=== PATIENT | female | born 1995 | race Caucasian/White ===

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

== ENCOUNTER 2017-09-22 18:40 | Emergency (ER) | payer MEDICAID ==
[~2017-09-22] VITALS: Ht 157.5 cm; Wt 63.5 kg
[2017-09-22] MEDS ORDERED: PRENATAL 19 TA1 EACH PO (19:00)
== END 2017-09-22 20:00 | disposition home or self-care (01) ==
LOC: ED 18:40
DX: J06.9 Acute upper respiratory infection, unspecified (principal)
CPT/HCPCS: 87880; 99283

== ENCOUNTER 2018-04-28 17:59 | Emergency (ER) | payer OTHER ==
[~2018-04-28] VITALS: Ht 157.5 cm; Wt 68.0 kg
[~2018-04-28 17:59] MED LIST changes: +PRENATAL 19 TA1 EACH PO
[2018-04-28] MEDS ORDERED: ZOLOFT25 MG PO (18:10)
[2018-04-28] MEDS ORDERED: DOXYCYCLINE HY100 MG PO (19:07)
[2018-04-28] MEDS ORDERED: VENTOLIN HFA18 GM INH (19:07)
[2018-04-28] MEDS ORDERED: PREDNISONE20 MG PO (19:07)
== END 2018-04-28 19:19 | disposition home or self-care (01) ==
LOC: ED 17:59
DX: J45.909 Unspecified asthma, uncomplicated (principal); Z79.899 Other long term (current) drug therapy
CPT/HCPCS: 87502; 99283; J7512

== ENCOUNTER 2018-07-23 17:34 | Emergency (ER) | payer OTHER ==
[~2018-07-23] VITALS: Ht 157.5 cm; Wt 70.3 kg
--- OUTSIDE RECORDS SUMMARY | ~2018-07-23 | XMS | Clinical Summary ---
Demographics + + + | Address | [address] | | | [place] [address] | + + + | Home Phone | | + + + | Preferred Language | Unknown | + + + | Marital Status | Unknown | + + + | Anabaptism Affiliation | Unknown | + + + | Race | Unknown | + + + | Ethnic Group | Unknown | + + + Author + + + | Author | [facility] | + + + | Organization | [facility] | + + + | Address | Unknown | + + + | Phone | Unavailable | + + + Support + + +---------+ + | Name | Relationship | Address | Phone | + + +---------+ + | Message,Detailed | ECON | Unknown | | + + +---------+ + | Sid Marrufo | ECON | Unknown | | + + +---------+ + | Edith Queen ECON | Unknown | | + + +---------+ + Care Team Providers + +------+ + | Care Information Technology Associate Name | Role | Phone | + +------+ + | Tatiana Vigil | PP | | + +------+ + Allergies No Known Allergies Current Medications + + +-------+---------+------+------+-------+ | Prescription | Sig. | Disp. | Refills | Star | End | Statu | | | | | | t | Date | s | | | | | | Date | | | + + +-------+---------+------+------+-------+ | | Inject into the | | | | | Activ | | MedroxyPROGESTERone | muscle every 3 | | | | | e | | Acetate | (three) months. | | | | | | | (DEPO-PROVERA IM) | | | | | | | + + +-------+---------+------+------+-------+ Active Problems + + + | Problem | Noted Date | + + + | Loss of consciousness (HCC) | 09/23/2015 | + + + | Vision loss | 09/23/2015 | + + + | Numbness and tingling | 09/23/2015 | + + + Family History + + +------+ + | Medical History | Relation | Name | Comments | + + +------+ + | Diabetes type II | Father | | | + + +------+ + + +------+--------+ + | Relation | Name | Status | Comments | + +------+--------+ + | Father | | Alive | | + +------+--------+ + | Mother | | Alive | | + +------+--------+ + Social History + +-------+ +--------+------+ | Tobacco Use | Types | Packs/Day | Years | Date | | | | | Used | | + +-------+ +--------+------+ | Never Smoker | | | | | + +-------+ +--------+------+ + + +---------+ + | Alcohol Use | Drinks/We | oz/Week | Comments | | | ek | | | + + +---------+ + | Yes | | | occ | + + +---------+ + + + + | Sex Assigned at | Date Recorded | | | | + + + | Not on file | | + + + Last Filed Vital Signs + + + + | Vital Sign | Reading | Time Taken | + + + + | Blood Pressure | 123/85 | 09/17/2015 1:15 PM PDT | + + + + | Pulse | 72 | 09/17/2015 1:15 PM PDT | + + + + | [...] Weight | 54.4 kg (120 lb) | 09/17/2015 1:15 PM PDT | + + + + | Height | 160 cm (5' 3") | 09/17/2015 1:15 PM PDT | + + + + | Body Mass Index | 21.26 | 09/17/2015 1:15 PM PDT | + + + + Plan [...] Vaccine: Influenza | | | | | (Season Ended) | 9 | | | + + + + + Results Not on filefrom Last 3 Months Insurance + +--------+ +------+-------+ + | Payer | Benefi | Subscriber | Type | Phone | Address | | | t Plan | ID | | | | | | / | | | | | | | Group | | | | | + +--------+ +------+-------+ + | MEDICAID | [place] | [id number] | | | [address] | | | N | | | | [place] | | | [place] | | | | [phone] | | | ENGINEER PROCESS | | | | | + +--------+ +------+-------+ + + +--------+ +--------+ + + | Guarantor Name | Accoun | Relation to | Date | Phone | Billing Address | | | t Type | Patient | of | | | | | | | | | | + +--------+ +--------+ + + | MAYA GRACE | Person | Self | [birth year] | Home: | [address] | | | [place] | | 1995 | [phone] | [place] [address] | | | [place] | | | [phone] | | + +--------+ +--------+ + +
--- OUTSIDE RECORDS SUMMARY | ~2018-07-23 | XMS | Clinical Summary ---
Demographics + + + | Address | [address] | | | [place] [address] | + + + | Home Phone | | + + + | Preferred Language | Unknown | + + + | Marital Status | Unknown | + + + | Sikh Affiliation | Unknown | + + + | Race | Unknown | + + + | Ethnic Group | Unknown | + + + Author + + + | Author | [facility] | + + + | Organization | [facility] | + + + | [...] Team Providers + +------+ + | Care Plywood Patcher Name | Role | Phone | + [...] +------+-------+ + | MEDICAID | [place] | [id number] | | | [address] | | | N | | | | [place] | | | [place] | | | | [phone] | | | CLINICAL RESOURCE COORDINATOR | | | | | + +--------+ [...] Self | [birth year] | Home: | [address] | | | al/[place] | | 1995 | [phone] | [place] [address] | | | [place] | | | [address] | | + +--------+ +--------+ + +
[~2018-07-23 17:34] MED LIST changes: +DOXYCYCLINE HY100 MG PO; +PREDNISONE20 MG PO; +VENTOLIN HFA18 GM INH; +ZOLOFT25 MG PO
[2018-07-23] MEDS ORDERED: TRAZODONE HCL150 MG PO (17:49)
[2018-07-23] MEDS ORDERED: CALCIUM500 MG PO (17:50)
[2018-07-23] MEDS ORDERED: IRON159 MG PO (17:50)
[2018-07-23] MEDS ORDERED: PREDNISONE20 MG PO (18:06)
[2018-07-23] MEDS ORDERED: ZITHROMAX250 MG PO (18:36)
== END 2018-07-23 18:48 | disposition home or self-care (01) ==
LOC: ED 17:34
DX: J45.901 Unspecified asthma with (acute) exacerbation (principal); Z79.899 Other long term (current) drug therapy
CPT/HCPCS: 71045; 94640; 99284-25; J7512

== ENCOUNTER 2018-11-04 14:08 | Emergency (ER) | payer OTHER ==
[~2018-11-04] VITALS: Ht 157.5 cm; Wt 69.8 kg
[~2018-11-04 14:08] MED LIST changes: +CALCIUM500 MG PO; +IRON159 MG PO; +TRAZODONE HCL150 MG PO; +ZITHROMAX250 MG PO
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
== END 2018-11-04 19:59 | disposition home or self-care (01) ==
LOC: ED 14:08
DX: O26.851 Spotting complicating pregnancy, first trimester (principal); Z3A.01 Less than 8 weeks gestation of pregnancy; Z79.899 Other long term (current) drug therapy
CPT/HCPCS: 76801; 76817; 84702; 96372; 99284-25; J2790

== ENCOUNTER → 2018-12-19 | Emergency (ER) | payer OTHER ==
[~2018-12-19] VITALS: Ht 157.5 cm; Wt 69.8 kg
[~2018-12-19] MED LIST changes: +PRENATAL 19 TA1 EAC1 PO
--- OUTSIDE RECORDS SUMMARY | ~2018-12-19 | XMS | Clinical Summary ---
Demographics + + + | Address | [address] | | | [place] [address] | + + + | Home Phone | | + + + | Preferred Language | Unknown | + + + | Marital Status | Unknown | + + + | Latter-Day Affiliation | Unknown | + + + | Race | Unknown | + + + | Ethnic Group | Unknown | + + + Author + + + | Author | [facility] (Historical as of | | | 10-15-18) | + + + | Organization | [facility] (Historical as of | | | 10-15-18) | + + + | Address | [...] + + +---------+ + | Edith Queen | ECON | Unknown | | + + +---------+ + Care Team Providers + +------+ + | Care Coin Dealer Name | Role | Phone | + [...] +------+-------+ + | MEDICAID | [place] | [id number] | | | [address] | | | N | | | | [place], [place] | | | [place] | | | | [address] | | | TEACHER VOCATIONAL TRAINING | | | | | + +--------+ +------+-------+ + + +--------+ +--------+ + + | Guarantor Name | Accoun | Relation to | Date | Phone | Billing Address | | | t Type | Patient | of | | | | | | | | | | + +--------+ +--------+ + + | MYAA GRACE | Person | Self | [birth year] | Home: | [address] | | | al/Fam | | 1995 | [phone] | [place] [address] | | | [place] | | | [address] | | + +--------+ +--------+ + +
--- OUTSIDE RECORDS SUMMARY | ~2018-12-19 | XMS | Clinical Summary ---
Demographics + + + | Address | [address] | | | [place] [address] | + + + | Home Phone | | + + + | Preferred Language | Unknown | + + + | Marital Status | Single | + + + | Faith Affiliation | Unknown | + + + | Race | Unknown | + + + | Ethnic Group | Unknown | + + + Author + + + | Author | [facility] | | | and [place] | + + + | Organization | [facility] | | | and [place] | + + + | Address | Unknown | + + + | Phone | Unavailable | + + + Care Team Providers + +------+ + | Care Tailman Name | Role | Phone | + [...]
--- OUTSIDE RECORDS SUMMARY | ~2018-12-19 | XMS | Clinical Summary ---
Demographics + + + | Address | [address] | | | [place] [address] | + + + | Home Phone | | + + + | Preferred Language | Unknown | + + + | Marital Status | Single | + + + | Worship Affiliation | Unknown | + + + | Race | Unknown | + + + | Ethnic Group | Unknown | + + + Author + + + | Author | [facility] | | | and [place] | + + + | Organization | [facility] | | | and [place] | + + + | Address | Unknown | + + + | Phone | Unavailable | + + + Care Team Providers + +------+ + | Care Gym Instructor Name | Role | Phone | + [...]
--- OUTSIDE RECORDS SUMMARY | ~2018-12-19 | XMS | Clinical Summary ---
Demographics + + + | Address | [address] | | | [place] [address] | + + + | Home Phone | | + + + | Preferred Language | Unknown | + + + | Marital Status | Unknown | + + + | Denominational Affiliation | Unknown | + + + | Race | Unknown | + + + | Ethnic Group | Unknown | + + + Author + + + | Author | [facility] (Historical as of | | | 10-15-18) | + + + | Organization | [facility] (Historical as of | | | 10-15-18) [...] Team Providers + +------+ + | Care Teacher Of The Handicapped Name | Role | Phone | + [...] +------+-------+ + | MEDICAID | [place] | [id number] | | | [address] | | | N | | | | [place], [place] | | | [place] | | | | [phone] | | | CONSTRUCTION SUPERINTENDENT | | | | | + +--------+ [...] Self | [birth year] | Home: | [address] | | | al/Fam | | 1995 | [phone] | [place] [address] | | | [place] | | | [address] | | + +--------+ +--------+ + +
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
== END ==
LOC: ED 23:04
DX: O99.89 Other specified diseases and conditions complicating pregnancy, childbirth and the puerperium (principal); R42 Dizziness and giddiness; Z3A.11 11 weeks gestation of pregnancy
CPT/HCPCS: 99283

== ENCOUNTER 2019-01-07 17:55 | Emergency (ER) | payer OTHER ==
[~2019-01-07] VITALS: Ht 157.5 cm; Wt 63.5 kg
--- OUTSIDE RECORDS SUMMARY | ~2019-01-07 | XMS | Clinical Summary ---
Demographics + + + | Address | [address] | | | [place] [address] | + + + | Home Phone | | + + + | Preferred Language | Unknown | + + + | Marital Status | Single | + + + | Restoration Affiliation | Unknown | + + + | Race | Unknown | + + + | Ethnic Group | Unknown | + + + Author + + + | Author | [facility] | | | and [place] | + + + | Organization | [facility] | | | and [place] | + + + | Address | Unknown | + + + | Phone | Unavailable | + + + Care Team Providers + +------+ + | Care Battery Container Inspector Name | Role | Phone | + +------+ + | Tatiana Vigil | PCP | | + +------+ + Allergies Not on File Medications Not on file Active Problems Not on file Family History + + +------+ + | Medical History | Relation | Name | Comments | + + +------+ + | Diabetes, NIDDM | Father | | | + + +------+ + + +------+--------+ + | Relation | Name | Status | Comments | + +------+--------+ + | Father | | Alive | | + +------+--------+ + | Father | | | | + +------+--------+ + | Mother | | Alive | | + +------+--------+ + Social History + +-------+ +--------+------+ | Tobacco Use | Types | Packs/Day | Years | Date | | | | | Used | | + +-------+ +--------+------+ | Never Smoker | | | | | + +-------+ +--------+------+ + + + | Sex Assigned at | Date Recorded | | | | + + + | Not on file | | + + + + + + + | Job Start Date | Occupation | Industry | + + + + | Not on file | Not on file | Not on file | + + + + + + + + | Travel History | Travel Start | Travel End | + + + + + + | No recent travel history available. | + + Last Filed Vital Signs + + + + | Vital Sign | Reading | Time Taken | + + + + | Blood Pressure | 123/85 | 09/17/20159 PDT | + + + + | Pulse | 72 | 09/17/20159 PDT | + + + + | Temperature | - | - | + + + + | Respiratory Rate | - | - | + + + + | Oxygen Saturation | - | - | + + + + | Inhaled Oxygen | - | - | | Concentration | | | + + + + | Weight | 54.4 kg (120 lb) | 09/17/20151318 PDT | + + + + | Height | 160 cm (5' 3") | 09/17/20151318 PDT | + + + + | Body Mass Index | 21.26 | 09/17/20151318 PDT | + + + + Plan of Treatment + + + + + | Health Maintenance | Due Date | Last Done | Comments | + + + + + | Well Child Check | | | | | | 1 | | | + + + + + | Vaccine: HPV (1 - | | | | | Female 3-dose | 3 | | | | series) | | | | + + + + + | Vaccine: | | | | | Dtap/Tdap/Td (1 - | 7 | | | | Tdap) | | | | + + + + + | Cervical Cancer | | | | | Screening (Pap) | 9 | | | + + + + + | Vaccine: Influenza | | | | | (#1) | 9 | | | + + + + + Results Not on filefrom Last 3 Months
--- OUTSIDE RECORDS SUMMARY | ~2019-01-07 | XMS | Clinical Summary ---
Demographics + + + | Address | [address] | | | [place] [address] | + + + | Home Phone | | + + + | Preferred Language | Unknown | + + + | Marital Status | Single | + + + | Religion Affiliation | Unknown | + + + | Race | Unknown | + + + | Ethnic Group | Unknown | + + + Author + + + | Author | [facility] | | | and [place] | + + + | Organization | [facility] | | | and [place] | + + + | Address | Unknown | + + + | Phone | Unavailable | + + + Care Team Providers + +------+ + | Care Offset Press Assistant Name | Role | Phone | + [...]
--- OUTSIDE RECORDS SUMMARY | ~2019-01-07 | XMS | Clinical Summary ---
Demographics + + + | Address | [address] | | | [place] [address] | + + + | Home Phone | | + + + | Preferred Language | Unknown | + + + | Marital Status | Unknown | + + + | Uatsdin Affiliation | Unknown | + + + | Race | Unknown | + + + | Ethnic Group | Unknown | + + + Author + + + | Author | [email or web address] (Historical as of | | | 10-15-18) | + + + | Organization | [email or web address] (Historical as of | | | 10-15-18) [...] Team Providers + +------+ + | Care Rental Manager Name | Role | Phone | + [...] +------+-------+ + | MEDICAID | [place] | [id number] | | | [address] | | | N | | | | [place], [place] | | | [place] | | | | [phone] | | | [employer]PER[employer] | | | | | + +--------+ [...] Self [birth year] Home: | [address] | | | al/Fam | | 1995 | [phone] | [place] [address] | | | [place] | | | [address] | | + +--------+ +--------+ + +
--- OUTSIDE RECORDS SUMMARY | ~2019-01-07 | XMS | Clinical Summary ---
Demographics + + + | Address | [address] | | | [place] [address] | + + + | Home Phone | | + + + | Preferred Language | Unknown | + + + | Marital Status | Unknown | + + + | Baptism Affiliation | Unknown | + + + | Race | Unknown | + + + | Ethnic Group | Unknown | + + + Author + + + | Author | [facility] (Historical as of | | | 10-15-18) | + + + | Organization | [facility] [employer] (Historical as of | | | 10-15-18) [...] Team Providers + +------+ + | Care Quality Control Operator Name | Role | Phone | [...] +------+-------+ + | MEDICAID | [place] | [id number] | | | [address] | | | N | | | | [place], [place] | | | [place] | | | | [phone] | | | MARKET INVESTIGATOR | | | | | + +--------+ [...] | 1995 | [phone] | [place] [address] | | | [place] | | | [address] | | + +--------+ +--------+ + +
--- OUTSIDE RECORDS SUMMARY | 2019-01-07 17:58 | XMS ---
PreManage Notification: ELIZABETH GRACE Security Scientific Director Events No recent Security Events currently on file CRITERIA MET - [facility] - Has Care Guidelines - [facility] - 2 Visits in 30 Days CARE PROVIDERS APOLLO MARSHALL Physician Optical Glass Etcher 11/07/2018-Current PHONE: [phone] Guidelines Source: [facility] Guidelines Date: 07/26/2018 Care Coordination: Mental health services provided by [facility].\T\nbsp; Please contact [facility] with mental health concerns.\T\nbsp; [facility] [phone]\T\ nbsp; [place]: [phone]. Care History Medical/Surgical 12/20/2018 [facility] - PATIENT OBGYN- DR WYNN. [place] VISIT COUNT (12 MO.) 6 [facility]. TOTAL 6 NOTE: Visits indicate total known visits. ED/UCC VISIT TRACKING (12 MO.) 01/07/2019 17:56 [facility] [place] TYPE: Emergency COMPLAINT: - FALL 12/19/2018 23:05 [facility] [place] TYPE: Emergency COMPLAINT: - SOB DIAGNOSES: - 11 weeks gestation of - Oth diseases and conditions compl preg/chldbrth - Dizziness and giddiness 11/07/2018 00:00 [facility] [place] TYPE: Emergency COMPLAINT: - NEEDS BLOOD WORK/ TEST 11/04/2018 14:08 [facility] [place] TYPE: Emergency COMPLAINT: - FALL, SPOTTING, 5 WKS DIAGNOSES: - Abnormal uterine and vaginal bleeding, unspecified - 1 Less than 8 weeks gestation of - Spotting complicating , first trimester - Other long term care social worker (current) drug therapy 07/23/2018 17:[facility] [address] [facility] [address] [place] TYPE: Emergency COMPLAINT: - DIFFICULTY BREATHING, COUGH DIAGNOSES: - Other long term care social worker (current) drug therapy - Shortness of breath - Unspecified asthma with (acute) exacerbation 04/28/2018 17:[address] [facility] [address] [facility] [place] TYPE: Emergency COMPLAINT: - COLD SYMPTOMS DIAGNOSES: - Other group home (current) drug therapy - Unspecified asthma, uncomplicated - Fever, unspecified INPATIENT VISIT TRACKING (12 MO.) No inpatient visits to display in this time frame [email or web address]
== END 2019-01-07 20:57 | disposition home or self-care (01) ==
LOC: ED 17:55
DX: O9A.212 Injury, poisoning and certain other consequences of external causes complicating pregnancy, second trimester (principal); S50.11XA Contusion of right forearm, initial encounter; S39.91XA Unspecified injury of abdomen, initial encounter; Z3A.14 14 weeks gestation of pregnancy; W01.198A Fall on same level from slipping, tripping and stumbling with subsequent striking against other object, initial encounter; Y99.0 Civilian activity done for income or pay
CPT/HCPCS: 76801; 76817; 99284-25

== ENCOUNTER 2019-07-16 23:49 | Inpatient (IN) | payer OTHER ==
[~2019-07-16] VITALS: Ht 157.5 cm; Wt 70.0 kg
[2019-07-17] MEDS ORDERED: FLOVENT HFA12 G1 INH (02:59)
--- NOTE | 2019-07-17 09:12 | PR ---
[facility] [address] [place], [place] [address] Signed Progress Notes IP Datetime Report Generated by YUNIOR: 07/17/2019 09:12 PROGRESS NOTES: [id number] Impression: Normal progression of labor; Non-reassuring heart rate Procedures: Scalp Electrode; Sterile Vag Exam Plan: Continue present management Other Plans: continue close observation Informed Consent Obtain: Vaginal Delivery; Induction of Labor; Risks, Benefits and Alternatives Discussed VITAL SIGNS: [id number] Vital Signs: Reviewed; Within Normal Limits EXAM: [id number] Dilatation: 3.5 Effacement: 85 Station: -2 Uterine Contractions: q 2 to 4 min, mild MEMBRANES: [id number] Pooling: Negative Membrane Status: Intact ROM Note: SROM with clear fluid Comments: Progressing. Will continue close observation but I suspect she is progressing quickly. Fetus A: [id number] FHR Baseline: 130 Variability: Moderate 6-25bpm Accelerations: 15X15 Decelerations: Variable FHR Category: Category II Presentation: Vertex Comments on Fetus A: continue close observation Fetus B: [id number] Signing Physician: Sandy Mccormack MD Copies: ~ *Electronically Signed* 07/17/19911 SANDY MCCORMACK MD PATIENT NAME: ELIZABETH OCHOA PROGRESS NOTE DATE OF : 97 PHYSICIAN: SANDY MCCORMACK MD RPT #: [id number] REPORT IS CONFIDENTIAL AND NOT TO BE RELEASED WITHOUT AUTHORIZATION
--- NOTE | 2019-07-17 09:31 | PR ---
[facility] [address] [place], [place] [address] Signed Progress Notes IP Datetime Report Generated by YUNIOR: 07/17/2019 09:30 PROGRESS NOTES: [id number] Impression: Normal progression of labor; Non-reassuring heart rate Procedures: Intrauterine Pressure Catheter; Amnio Infusion Other Procedures: subQ terb Plan: Continue present management Other Plans: continue close observation Informed Consent Obtain: Vaginal Delivery; Induction of Labor; Risks, Benefits and Alternatives Discussed VITAL SIGNS: [id number] Vital Signs: Reviewed; Within Normal Limits EXAM: [id number] Dilatation: 4.0 Effacement: 90 Station: -2 Uterine Contractions: q 2 to 4 min, mild MEMBRANES: [id number] Pooling: Negative Membrane Status: Intact ROM Note: SROM with clear fluid Comments: FHTs appear much improved at this time but continued close observation will be needed. Fetus A: [id number] FHR Baseline: 140 Variability: Moderate 6-25bpm Accelerations: None Decelerations: Late; Variable FHR Category: Category II Presentation: Vertex Comments on Fetus A: decels currently better after amnioinfusion and subQ terb Fetus B: [id number] Signing Physician: Sandy Mccormack MD Copies: ~ *Electronically Signed* 07/17/19929 SANDY MCCORMACK MD PATIENT NAME: ELIZABETH OCHOA PROGRESS NOTE DATE OF : 97 PHYSICIAN: SANDY MCCORMACK MD RPT #: [id number] REPORT IS CONFIDENTIAL AND NOT TO BE RELEASED WITHOUT AUTHORIZATION
--- NOTE | 2019-07-17 13:05 | PR ---
[facility] [address] [facility] [place], [place] [address] Signed Progress Notes IP Datetime Report Generated by YUNIOR: 07/17/2019 13:05 PROGRESS NOTES: [id number] Impression: Normal progression of labor Procedures: Sterile Vag Exam Other Procedures: subQ terb Plan: Continue present management Other Plans: continue close observation Informed Consent Obtain: Vaginal Delivery; Induction of Labor; Risks, Benefits and Alternatives Discussed VITAL SIGNS: [id number] Vital Signs: Reviewed; Within Normal Limits EXAM: [id number] Dilatation: 9.0 Effacement: 85 Station: -2 Uterine Contractions: q 1 to 3 min MEMBRANES: [id number] Pooling: Negative Membrane Status: Intact ROM Note: SROM with clear fluid Comments: Progressing well. Will continune. Fetus A: [id number] FHR Baseline: 140 Variability: Moderate 6-25bpm Accelerations: 15X15 Decelerations: Variable FHR Category: Category II Presentation: Vertex Comments on Fetus A: overall reassuring but will continue close observation Fetus B: [id number] Signing Physician: Sandy Mccormack MD Copies: ~ *Electronically Signed* 07/17/19 1305 SANDY MCCORMACK MD PATIENT NAME: ELIZABETH OCHOA PROGRESS NOTE DATE OF : 97 PHYSICIAN: SANDY MCCORMACK MD RPT #: [id number] REPORT IS CONFIDENTIAL AND NOT TO BE RELEASED WITHOUT AUTHORIZATION
--- NOTE | 2019-07-18 07:36 | PR ---
[facility] [address] [place] [address] Signed PP Progress Notes Datetime Report Generated by YUNIOR: 07/18/2019 07:36 SUBJECTIVE: [id number] Pain: Within normal limits Vital Signs: [id number] Vital Signs: Reviewed; Within Normal Limits EXAM: [id number] Cardiovascular: Not Done Respiratory: Not Done Abdomen/Uterus: Abnormal Lochia: Normal Vulva/Perineum: Not Done Breasts: Not Done CVA Tenderness: Not Done Extremities: Normal Incision: Not Applicable Progress: Abnormal Exam Comments: Fundus firm, NT @ U-1. H/H 12/27.9, WBC 15.7, plat 210k IMPRESSION/PLAN/PROCEDURES: [id number] Impression: Normal progression Plan: Continue present management; consult Procedures: Rhogam Progress Notes: Doing well other than breast feeding. She has not voided since removal of her catheter this am. Will work on these things with probable D/C tomorrow. Signing Physician: Sandy Mccormack MD Copies: ~ *Electronically Signed* 07/18/19 0736 SANDY MCCORMACK MD PATIENT NAME: ELIZABETH OCHOA PROGRESS NOTE DATE OF : 97 PHYSICIAN: SANDY MCCORMACK MD RPT #: [id number] REPORT IS CONFIDENTIAL AND NOT TO BE RELEASED WITHOUT AUTHORIZATION
--- NOTE | 2019-07-19 13:08 | PR ---
[facility] [address] [facility] [place] [address] Signed PP Progress Notes Datetime Report Generated by YUNIOR: 07/19/2019 13:08 SUBJECTIVE: [id number] Pain: Within normal limits Vital Signs: [id number] Vital Signs: Reviewed; Within Normal Limits EXAM: [id number] Cardiovascular: Not Done Respiratory: Not Done Abdomen/Uterus: Abnormal Lochia: Normal Vulva/Perineum: Not Done Breasts: Not Done CVA Tenderness: Not Done Extremities: Normal Incision: Not Applicable Progress: Normal Exam Comments: Fundus firm, NT @ U-1. IMPRESSION/PLAN/PROCEDURES: [id number] Impression: Normal progression Plan: Discharge Procedures: Rhogam Progress Notes: Doing well. She is ready for D/C. Signing Physician: Sandy Mccormack MD Copies: ~ *Electronically Signed* 07/19/19 1308 SANDY MCCORMACK MD PATIENT NAME: ELIZABETH OCHOA PROGRESS NOTE DATE OF : 97 PHYSICIAN: SANDY MCCORMACK MD RPT #: [id number] REPORT IS CONFIDENTIAL AND NOT TO BE RELEASED WITHOUT AUTHORIZATION
== END 2019-07-19 14:22 | disposition home or self-care (01) | DRG 768 ==
LOC: FBC 07-17 00:01
PROVIDERS: ADMIT Obstetrics & Gynecology
PROC: 10E0XZZ Delivery of Products of Conception, External Approach (ICD-10-PCS; principal; 2019-07-17)
PROC: 0UQM0ZZ Repair Vulva, Open Approach (ICD-10-PCS; 2019-07-17)
PROC: 3E0P7VZ Introduction of Hormone into Female Reproductive, Via Natural or Artificial Opening (ICD-10-PCS; 2019-07-17)
PROC: 10H07YZ Insertion of Other Device into Products of Conception, Via Natural or Artificial Opening (ICD-10-PCS; 2019-07-17)
PROC: 3E0E7GC Introduction of Other Therapeutic Substance into Products of Conception, Via Natural or Artificial Opening (ICD-10-PCS; 2019-07-17)
PROC: 00HU33Z Insertion of Infusion Device into Spinal Canal, Percutaneous Approach (ICD-10-PCS; 2019-07-17)
PROC: 3E0R3BZ Introduction of Anesthetic Agent into Spinal Canal, Percutaneous Approach (ICD-10-PCS; 2019-07-17)
PROC: 3E0234Z Introduction of Serum, Toxoid and Vaccine into Muscle, Percutaneous Approach (ICD-10-PCS; 2019-07-18)
DX: O48.0 Post-term pregnancy (principal); Z37.0 Single live birth; O99.354 Diseases of the nervous system complicating childbirth; Z3A.41 41 weeks gestation of pregnancy; O70.0 First degree perineal laceration during delivery; O76 Abnormality in fetal heart rate and rhythm complicating labor and delivery; Z67.41 Type O blood, Rh negative; O26.893 Other specified pregnancy related conditions, third trimester; G43.909 Migraine, unspecified, not intractable, without status migrainosus; Z79.899 Other long term (current) drug therapy
CPT/HCPCS: 01960; 36415; 82803; 83030; 85027; 86850; 86900; 86901; A9270; J2590; J2790; J2795; J3010; J3105; J7121

== ENCOUNTER 2019-08-12 17:46 | Emergency (ER) | payer OTHER ==
[~2019-08-12] VITALS: Ht 157.5 cm; Wt 61.2 kg
[~2019-08-12 17:46] MED LIST changes: +FLOVENT HFA12 G1 INH
--- OUTSIDE RECORDS SUMMARY | 2019-08-12 17:50 | XMS ---
PreManage Notification: ELIZABETH OCHOA Security Cloth Winder Events No recent Security Events currently on file CRITERIA MET - Group Notification - [facility] - Has Care Guidelines CARE PROVIDERS APOLLO MARSHALL Physician Overnight Stocker 11/07/2018-Current PHONE: [phone] Guidelines Source: [facility] Guidelines Date: 07/26/2018 Care Coordination: Mental health services provided by [facility].\T\nbsp; Please contact [facility] with mental health concerns.\T\nbsp; [place]: [phone]\T\ nbsp; [place]: [phone]. Care History Medical/Surgical 12/20/2018 [facility] - PATIENT OBSHALININ- DR WYNN. [place] VISIT COUNT (12 MO.) 5 [facility]. TOTAL 5 NOTE: Visits indicate total known visits. ED/UCC VISIT TRACKING (12 MO.) 08/12/2019 17:47 [facility] [place] TYPE: Emergency COMPLAINT: - BIG BITE, RIGHT KNEE 01/07/2019 17:56 [facility] [place] TYPE: Emergency COMPLAINT: - FALL DIAGNOSES: - Injury, poisoning and certain other consequences of external - Unspecified abdominal pain - Fall on same level from slipping, tripping and stumbling with - Unspecified injury of abdomen, initial encounter - Civilian activity done for income or pay - 14 weeks gestation of - Contusion of right forearm, initial encounter 12/19/2018 23:05 [facility] [place] TYPE: Emergency COMPLAINT: - SOB DIAGNOSES: - 11 weeks gestation of - Other specified diseases and conditions complicating pregnanc - Dizziness and giddiness 11/07/2018 00:00 [facility] [place] TYPE: Emergency COMPLAINT: - NEEDS BLOOD WORK/ TEST 11/04/2018 14:08 [facility] [place] TYPE: Emergency COMPLAINT: - FALL, SPOTTING, 5 WKS DIAGNOSES: - Abnormal uterine and vaginal bleeding, unspecified - Less than 8 weeks gestation of - Spotting complicating , first trimester - Other shelter (current) drug therapy INPATIENT VISIT TRACKING (12 MO.) 07/17/2019 00:01 [facility] [place] TYPE: [facility] COMPLAINT: - INDUCTION DIAGNOSES: - Diseases of the nervous system complicating childbirth - Other shelter (current) drug therapy - First degree perineal laceration during delivery - Migraine, unspecified, not intractable, without status migrai - Type O blood, Rh negative - Abnormality in heart rate and rhythm complicating labor - Single live - Single live - 41 weeks gestation of - Post-term - Abnormality in heart rate and rhythm complicating labor - 41 weeks gestation of - Other specified related conditions, third trimester - Type O blood, Rh negative - Migraine, unspecified, not intractable, without status migrai - Other shelter (current) drug therapy - Other specified related conditions, third trimester - Diseases of the nervous system complicating childbirth - First degree perineal laceration during delivery [email or web address]
== END 2019-08-12 20:03 | disposition home or self-care (01) ==
LOC: ED 17:46
DX: T63.481A Toxic effect of venom of other arthropod, accidental (unintentional), initial encounter (principal); G43.909 Migraine, unspecified, not intractable, without status migrainosus; J45.909 Unspecified asthma, uncomplicated; Z87.891 Personal history of nicotine dependence; Z79.899 Other long term (current) drug therapy
CPT/HCPCS: 96374; 96375; 99283-25; J1100; J1885; J3475; J7030

== ENCOUNTER 2020-01-06 18:26 | Emergency (ER) | payer OTHER ==
[~2020-01-06] VITALS: Ht 157.5 cm; Wt 62.1 kg
--- OUTSIDE RECORDS SUMMARY | 2020-01-06 18:30 | XMS ---
PreManage Notification: ELIZABETH OCHOA Security Speaking Unit Assembler Events No recent Security Events currently on file CRITERIA MET - Group Notification - [facility] - Has Care Guidelines CARE PROVIDERS APOLLO MARSHALL Physician Crepe Sole Scourer 11/07/2018-Current PHONE: [phone] Guidelines Source: [facility] Guidelines Date: 07/26/2018 Care Coordination: Mental health services provided by [facility].\T\nbsp; Please contact [facility] with mental health concerns.\T\nbsp; [place]: [phone]\T\ nbsp; [place]: [phone]. Care History Medical/Surgical 12/20/2018 [facility] - PATIENT OBSHALININ- DR WYNN. [place] VISIT COUNT (12 MO.) 3 [facility]. TOTAL 3 NOTE: Visits indicate total known visits. ED/UCC VISIT TRACKING (12 MO.) 01/06/2020 18:27 [facility] [place] TYPE: Emergency COMPLAINT: - CRAMPING <15 WEEKS 08/12/2019 17:47 [facility] [place] TYPE: Emergency COMPLAINT: - BIG BITE, RIGHT KNEE DIAGNOSES: - Migraine, unspecified, not intractable, without status migrainosus - Toxic effect of venom of other arthropod, accidental (unintentional), initial encounter - Unspecified asthma, uncomplicated - Other senior care (current) drug therapy - Other specified soft tissue disorders - Personal history of nicotine dependence 01/07/2019 17:56 [facility] [place] TYPE: Emergency COMPLAINT: - FALL DIAGNOSES: - Injury, poisoning and certain other consequences of external causes complicating , second trimester - Unspecified abdominal pain - Fall on same level from slipping, tripping and stumbling with subsequent striking against other object, initial encounter - Unspecified injury of abdomen, initial encounter - Civilian activity done for income or pay - 14 weeks gestation of - Contusion of right forearm, initial encounter INPATIENT VISIT TRACKING (12 MO.) 07/17/2019 00:01 [facility] [place] TYPE: [facility] COMPLAINT: - INDUCTION DIAGNOSES: - Diseases of the nervous system complicating childbirth - Other senior care (current) drug therapy - First degree perineal laceration during delivery - Migraine, unspecified, not intractable, without status migrainosus - Type O blood, Rh negative - Abnormality in heart rate and rhythm complicating labor and delivery - Single live - Single live - 41 weeks gestation of - Post-term - Abnormality in heart rate and rhythm complicating labor and delivery - 41 weeks gestation of - Other specified related conditions, third trimester - Type O blood, Rh negative - Migraine, unspecified, not intractable, without status migrainosus - Other senior care (current) drug therapy - Other specified related conditions, third trimester - Diseases of the nervous system complicating childbirth - First degree perineal laceration during delivery [email or web address]
[2020-01-06] MEDS ORDERED: BUTALB-ACETAMI1 EACH PO (18:48)
== END 2020-01-06 22:11 | disposition home or self-care (01) ==
LOC: ED 18:26
DX: O99.891 Other specified diseases and conditions complicating pregnancy (principal); R10.2 Pelvic and perineal pain; V43.92XA Unspecified car occupant injured in collision with other type car in traffic accident, initial encounter; Z3A.15 15 weeks gestation of pregnancy; Z87.891 Personal history of nicotine dependence; Z91.018 Allergy to other foods
CPT/HCPCS: 76815; 86900; 86901; 96372; 99284-25; J2790

== ENCOUNTER 2020-04-11 17:44 | Observation (INO) | payer OTHER ==
[~2020-04-11] VITALS: Ht 157.5 cm; Wt 70.8 kg
[~2020-04-11 17:44] MED LIST changes: +BUTALB-ACETAMI1 EACH PO
--- NOTE | 2020-04-11 23:51 | NUR ---
PT WAS SWABBED FOR COVID 19 FULL PPE DONNED SAMPLE SENT TO LAB
== END 2020-04-12 18:50 | disposition home or self-care (01) ==
LOC: FBCO 17:44 → FBC 19:30
PROVIDERS: ADMIT Obstetrics & Gynecology; ATTEND Obstetrics & Gynecology
DX: O9A.213 Injury, poisoning and certain other consequences of external causes complicating pregnancy, third trimester (principal); R68.89 Other general symptoms and signs; O47.03 False labor before 37 completed weeks of gestation, third trimester; V89.2XXA Person injured in unspecified motor-vehicle accident, traffic, initial encounter; O32.1XX0 Maternal care for breech presentation, not applicable or unspecified; Z3A.28 28 weeks gestation of pregnancy; Z20.822 Contact with and (suspected) exposure to COVID-19
CPT/HCPCS: 76815; 76817; 96372; C9803; G0378; J3105; J7121; U0003

== ENCOUNTER 2020-06-24 06:11 | Inpatient (IN) | payer OTHER ==
[~2020-06-24] VITALS: Ht 159.5 cm; Wt 73.9 kg
--- NOTE | 2020-06-25 08:24 | PR ---
[facility] [address] [facility] [place], [place] [address] Signed PP Progress Notes Datetime Report Generated by CPN: 06/25/2020 08:23 SUBJECTIVE: [id number] Pain: Within Normal Limits Nausea/Vomiting: Denies Vital Signs: [id number] Vital Signs: Reviewed; Within Normal Limits EXAM: Ongoing Cardiovascular: Not Done Respiratory: Not Done Abdomen/Uterus: Abnormal Lochia: Normal Vulva/Perineum: Not Done Breasts: Not Done CVA Tenderness: Not Done Extremities: Normal Incision: Not Applicable Progress: Normal Exam Comments: Fundus firm, NT @ U-2. H/H 8.7/27.9, WBC 12.1, plat 197k IMPRESSION/PLAN/PROCEDURES: [id number] Impression: Normal Progression Plan: Discharge Procedures: Rubella Progress Notes: She is doing well. She desires discharge today. Signing Physician: Sandy Mccormack MD Copies: ~ *Electronically Signed* 06/25/20822 SANDY MCCORMACK MD PATIENT NAME: ELIZABETH OCHOA PROGRESS NOTE DATE OF : 97 PHYSICIAN: SANDY MCCORMACK MD RPT #: [id number] REPORT IS CONFIDENTIAL AND NOT TO BE RELEASED WITHOUT AUTHORIZATION
== END 2020-06-25 12:10 | disposition home or self-care (01) | DRG 807 ==
LOC: FBC 06:11
PROVIDERS: ADMIT Obstetrics & Gynecology; ATTEND Obstetrics & Gynecology
PROC: 10E0XZZ Delivery of Products of Conception, External Approach (ICD-10-PCS; principal; 2020-06-24)
PROC: 00HU33Z Insertion of Infusion Device into Spinal Canal, Percutaneous Approach (ICD-10-PCS; 2020-06-24)
PROC: 3E0R3BZ Introduction of Anesthetic Agent into Spinal Canal, Percutaneous Approach (ICD-10-PCS; 2020-06-24)
PROC: 10907ZC Drainage of Amniotic Fluid, Therapeutic from Products of Conception, Via Natural or Artificial Opening (ICD-10-PCS; 2020-06-24)
PROC: 0UQMXZZ Repair Vulva, External Approach (ICD-10-PCS; 2020-06-24)
PROC: 3E0134Z Introduction of Serum, Toxoid and Vaccine into Subcutaneous Tissue, Percutaneous Approach (ICD-10-PCS; 2020-06-25)
DX: O70.0 First degree perineal laceration during delivery (principal); Z37.0 Single live birth; Z3A.39 39 weeks gestation of pregnancy; O99.52 Diseases of the respiratory system complicating childbirth; J45.20 Mild intermittent asthma, uncomplicated; G43.909 Migraine, unspecified, not intractable, without status migrainosus; O99.344 Other mental disorders complicating childbirth; F31.9 Bipolar disorder, unspecified; Z23 Encounter for immunization; Z79.899 Other long term (current) drug therapy
CPT/HCPCS: 36415; 85027; 90707; A9270; J2001; J2590; J2795; J7121

== ENCOUNTER 2022-05-15 06:05 | Inpatient (IN) | payer OTHER ==
[~2022-05-15] VITALS: Ht 157.5 cm; Wt 71.7 kg
--- NOTE | 2022-05-15 12:24 | PR ---
[facility] [address] [facility] [address] [place], [place] [address] Signed Progress Notes IP Datetime Report Generated by CPN: 05/15/2022 12:24 PROGRESS NOTES: [id number] Impression: Reassuring Heart Rate Procedures: Sterile Vag Exam Plan: Augmentation VITAL SIGNS: [id number] Vital Signs: Reviewed; Within Normal Limits EXAM: [id number] Dilatation: 4.0 Effacement: 75 Station: -2 Contractions: irregular MEMBRANES: [id number] Comments: Minimal change in her cervix and she has had few contractions. I think augmentation is needed to increase contractions and allow progress. FETUS A: [id number] FHR Baseline: 150 Variability: Moderate 6-25bpm Accelerations: 15X15 Decelerations: None FHR Category: Category I Presentation: Vertex Comments on Fetus A: no evidence of metabolic acidosis FETUS B: [id number] Signing Physician: Sandy Mccormack MD Copies: ~ *Electronically Signed* 05/15/22 1224 SANDY MCCORMACK MD PATIENT NAME: ELIZABETH OCHOA PROGRESS NOTE DATE OF : 97 PHYSICIAN: SANDY MCCORMACK MD RPT #: [id number] REPORT IS CONFIDENTIAL AND NOT TO BE RELEASED WITHOUT AUTHORIZATION
--- NOTE | 2022-05-16 09:17 | PR ---
[facility] [address] [facility] [place], [place] [address] Signed PP Progress Notes Datetime Report Generated by CPN: 05/16/2022 09:17 SUBJECTIVE: [id number] Pain: Within Normal Limits Vital Signs: [id number] Vital Signs: Reviewed; Within Normal Limits Cardiovascular: Not Done Respiratory: Not Done Abdomen/Uterus: Abnormal Lochia: Normal Vulva/Perineum: Not Done Breasts: Not Done CVA Tenderness: Not Done Extremities: Normal Incision: Not Applicable Progress: Normal Exam Comments: Fundus firm, NT @ U-1. H/H 10.7/33.2, WBC 11.1, plat 177k IMPRESSION/PLAN/PROCEDURES: [id number] Impression: Normal Progression Plan: Continue Present Management Procedures: Rhogam Progress Notes: Doing well. Will continue observation for SGA. Signing Physician: Sandy Mccormack MD Copies: ~ *Electronically Signed* 05/16/22916 SANDY MCCORMACK MD PATIENT NAME: ELIZABETH OCHOA PROGRESS NOTE DATE OF : 97 PHYSICIAN: SANDY MCCORMACK MD RPT #: [id number] REPORT IS CONFIDENTIAL AND NOT TO BE RELEASED WITHOUT AUTHORIZATION
== END 2022-05-16 18:57 | disposition home or self-care (01) | DRG 807 ==
LOC: FBC 06:05
PROVIDERS: ADMIT Obstetrics & Gynecology; ATTEND Obstetrics & Gynecology
PROC: 10E0XZZ Delivery of Products of Conception, External Approach (ICD-10-PCS; principal; 2022-05-15)
PROC: 0HQ9XZZ Repair Perineum Skin, External Approach (ICD-10-PCS; 2022-05-15)
PROC: 10907ZC Drainage of Amniotic Fluid, Therapeutic from Products of Conception, Via Natural or Artificial Opening (ICD-10-PCS; 2022-05-15)
PROC: 00HU33Z Insertion of Infusion Device into Spinal Canal, Percutaneous Approach (ICD-10-PCS; 2022-05-15)
PROC: 3E0R3BZ Introduction of Anesthetic Agent into Spinal Canal, Percutaneous Approach (ICD-10-PCS; 2022-05-15)
PROC: 3E0234Z Introduction of Serum, Toxoid and Vaccine into Muscle, Percutaneous Approach (ICD-10-PCS; 2022-05-15)
DX: O36.5930 Maternal care for other known or suspected poor fetal growth, third trimester, not applicable or unspecified (principal); Z37.0 Single live birth; O26.893 Other specified pregnancy related conditions, third trimester; Z67.41 Type O blood, Rh negative; Z3A.37 37 weeks gestation of pregnancy; O70.0 First degree perineal laceration during delivery; Z87.891 Personal history of nicotine dependence
CPT/HCPCS: 36415; 83030; 85027; 86850; 86870; 86900; 86901; 87502; A9270; J2540; J2590; J2790; J2795; J3010; U0003

== ENCOUNTER 2023-12-14 07:32 | Inpatient (IN) | payer OTHER ==
[~2023-12-14 07:32] MED LIST changes: +AMOX TR-K CLV1 EAC1 PO; +MEDROL4 MG PO
[2023-12-14] MEDS ORDERED: CALCIUM CARBONATE 500 MG CHEW PO PRN ×2 (08:30→19:45)
[2023-12-14] MEDS ORDERED: OXYTOCIN/DEXTROSE 5% 20 UNITS/100 ML BAG IV SCH (08:30)
[2023-12-14] MEDS ORDERED: MAGNESIUM HYDROXIDE/AL HYDROX 30 ML CUP PO PRN ×2 (08:30→19:45)
[2023-12-14] MEDS ORDERED: LACTATED RINGER'S 1,000 ML IV PRN (08:30)
[2023-12-14 09:01] LABS: AMPHETAMINES, URINE NEGATIVE (NEGATIVE); BARBITURATES, URINE NEGATIVE (NEGATIVE); BENZODIAZEPINE, URINE NEGATIVE (NEGATIVE); BUPRENORPHINE, URINE NEGATIVE (NEGATIVE); CANNABINOID, URINE NEGATIVE (NEGATIVE); COCAINE, URINE NEGATIVE (NEGATIVE); ECSTASY, URINE NEGATIVE (NEGATIVE); FENTANYL, URINE NEGATIVE (NEGATIVE); METHADONE, URINE NEGATIVE (NEGATIVE); OPIATES, URINE NEGATIVE (NEGATIVE); OXYCODONE, URINE NEGATIVE (NEGATIVE); PHENCYCLIDINE, URINE NEGATIVE (NEGATIVE)
[2023-12-14 09:28] LABS: HEMATOCRIT 31.8 % (35.0-50.0); HEMOGLOBIN 10.3 g/dL (12.0-18.0); MCHC 32.4 g/dl (30-36); RBC 4.49 M/ul (4.3-5.7); RDW 14.9 (10.5-15.0)
[2023-12-14 10:12] LABS: ABO O; ANTIBODY SCREEN NEGATIVE; RH NEGATIVE
[2023-12-14] MEDS ORDERED: ROPIVACAINE 0.2% 200 ML BAG ONE (13:54)
[2023-12-14] MEDS ORDERED: LACTATED RINGER'S 2,000 ML IV ONE (14:15)
[2023-12-14] MEDS ORDERED: LACTATED RINGER'S 500 ML IV PRN (14:15)
[2023-12-14] MEDS ORDERED: ePHEDrine sulfate 5 MG/ML SYRINGE IV PRN (14:15)
[2023-12-14] MEDS ORDERED: ROPIVACAINE 0.2% 200 ML BAG EPIDURAL SCH (14:15)
[2023-12-14] MEDS ORDERED: ACETAMINOPHEN 325 MG TAB PO PRN (19:45)
[2023-12-14] MEDS ORDERED: BENZOCAINE 60 ML AEROSOL TOP PRN (19:45)
[2023-12-14] MEDS ORDERED: WITCH HAZEL/GLYCERIN 1 EA PAD TOP PRN (19:45)
[2023-12-14] MEDS ORDERED: HYDROCORTISONE ACETATE 25 MG SUPP PR PRN (19:45)
[2023-12-14] MEDS ORDERED: MAGNESIUM HYDROXIDE 30 ML UDC PO PRN (19:45)
[2023-12-14] MEDS ORDERED: IBUPROFEN 600 MG TAB PO PRN (19:45)
[2023-12-14] MEDS ORDERED: SENNOSIDES/DOCUSATE 1 EA TAB PO SCH (21:00)
[2023-12-15 05:59] LABS: HEMATOCRIT 30.8 % (35.0-50.0); MCH 23.2 (27-36); MCHC 32.6 g/dl (30-36); MCV 71.1 fl (81-99); RBC 4.33 M/ul (4.3-5.7); RDW 15.2 (10.5-15.0)
[2023-12-15] MEDS ORDERED: GLYCERIN 2 GM SUPP PR ONE (09:45)
== END 2023-12-15 18:05 | disposition home or self-care (01) | DRG 807 ==
LOC: FBC 07:32
PROVIDERS: ADMIT Obstetrics & Gynecology; ATTEND Obstetrics & Gynecology
PROC: 10E0XZZ Delivery of Products of Conception, External Approach (ICD-10-PCS; principal; 2023-12-14)
PROC: 10907ZC Drainage of Amniotic Fluid, Therapeutic from Products of Conception, Via Natural or Artificial Opening (ICD-10-PCS; 2023-12-14)
PROC: 3E033VJ Introduction of Other Hormone into Peripheral Vein, Percutaneous Approach (ICD-10-PCS; 2023-12-14)
PROC: 3E0R3BZ Introduction of Anesthetic Agent into Spinal Canal, Percutaneous Approach (ICD-10-PCS; 2023-12-14)
PROC: 00HU33Z Insertion of Infusion Device into Spinal Canal, Percutaneous Approach (ICD-10-PCS; 2023-12-14)
DX: O26.893 Other specified pregnancy related conditions, third trimester (principal); Z37.0 Single live birth; Z67.41 Type O blood, Rh negative; O76 Abnormality in fetal heart rate and rhythm complicating labor and delivery; O70.0 First degree perineal laceration during delivery; Z3A.39 39 weeks gestation of pregnancy
CPT/HCPCS: 01960; 36415; 80307; 82803; 85027; 86850; 86900; 86901; A9270; J2590; J2795; J7121

== ENCOUNTER 2024-02-29 21:45 | Emergency (ER) | payer OTHER ==
[~2024-02-29] VITALS: Ht 157.5 cm; Wt 65.8 kg
--- OUTSIDE RECORDS SUMMARY | 2024-02-29 21:52 | XMS ---
PreManage Notification: ELIZABETH OCHOA Security Supervisor Delivery Department Events No recent Security Events currently on file CRITERIA MET - Group Notification CARE PROVIDERS APOLLO MARSHALL Physician Learning And Development Manager 11/07/2018-Current PHONE: [phone] -[facility] Dentist: Special Effects Designer [facility] PHONE: [phone] -[place]- Dentist: Special Effects Designer [facility] PHONE: [phone] [facility] Current PHONE: Unknown Care Guidelines exist for the following facilities: [facility] ( [facility] ) Care History Medical/Surgical 12/20/2018 [facility] \R\- PATIENT PEDRO- DR WYNN. [place] VISIT COUNT (12 MO.) 2 [facility]. TOTAL 2 NOTE: Visits indicate total known visits. ED/UCC VISIT TRACKING (12 MO.) 02/29/2024 21:46 [facility] [place] TYPE: Emergency COMPLAINT: - TOOTH PAIN 08/26/2023 21:30 [facility] [place] TYPE: Emergency COMPLAINT: - WRIST PAIN INPATIENT VISIT TRACKING (12 MO.) 12/14/2023 07:32 [facility] [place] TYPE: [facility] COMPLAINT: - INDUCTION DIAGNOSES: - 39 weeks gestation of - 39 weeks gestation of - Abnormality in heart rate and rhythm complicating labor and delivery - Abnormality in heart rate and rhythm complicating labor and delivery - First degree perineal laceration during delivery - First degree perineal laceration during delivery - Other specified related conditions, third trimester - Single live - Single live - Type O blood, Rh negative - Type O blood, Rh negative 08/26/2023 22:00 [facility] [place] TYPE: Observation COMPLAINT: - ADBOMINAL TRAUMA IN DIAGNOSES: - 23 weeks gestation of - Injury, poisoning and certain other consequences of external causes complicating , second trimester - Striking against other object with subsequent fall, initial encounter - Unspecified injury of abdomen, initial encounter - Unspecified injury of right forearm, initial encounter [email or web address]
[2024-02-29] MEDS ORDERED: AMOXICILLIN/CLAVULANATE K 875 MG HOME.PACK PO ONE (22:30)
[2024-02-29] MEDS ORDERED: IBUPROFEN 800 MG TAB PO ONE (22:30)
[2024-02-29] MEDS ORDERED: AMOXICILLIN/CLAVULANATE K 875 MG TAB PO ONE (22:30)
[2024-02-29] MEDS ORDERED: AMOX TR-K CLV1 EAC1 PO (22:32)
[2024-02-29 22:40] VITALS: BP 134/91
== END 2024-02-29 22:41 | disposition home or self-care (01) ==
LOC: ED 21:45
DX: K04.7 Periapical abscess without sinus (principal); J45.909 Unspecified asthma, uncomplicated; Z91.018 Allergy to other foods
CPT/HCPCS: 99283; A9270

== ENCOUNTER 2024-11-18 19:52 | Emergency (ER) | payer OTHER ==
[~2024-11-18] VITALS: Ht 157.5 cm; Wt 60.0 kg
--- OUTSIDE RECORDS SUMMARY | 2024-11-18 19:59 | XMS ---
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 Sarabia VISIT COUNT (12 MO[address] 3 [facility]. TOTAL 3 NOTE: Visits indicate total known visits. ED/UCC VISIT TRACKING (12 MO.) 11/18/2024 19:53 [facility] [place] TYPE: Emergency COMPLAINT: - POSS LUMP 08/11/2024 20:08 [facility] [place] TYPE: Emergency COMPLAINT: - MIGRAINE W/ NOSE BLEEDS DIAGNOSES: - Allergy to other foods - Epistaxis - Essential (primary) hypertension - Fall on same level, unspecified, initial encounter - Headache, unspecified - History of falling - Migraine, unspecified, not intractable, without status migrainosus - Personal history of other diseases of the nervous system and sense organs - Personal history of transient ischemic attack (TIA), and cerebral infarction without residual deficits - Presence of right artificial hip joint - Traumatic subdural hemorrhage with loss of consciousness status unknown, initial encounter - Type 2 diabetes mellitus without complications - Unspecified asthma, uncomplicated - Unspecified injury of head, initial encounter 02/29/2024 21:46 [facility] [place] TYPE: Emergency COMPLAINT: - TOOTH PAIN DIAGNOSES: - Allergy to other foods - Periapical abscess without sinus - Unspecified asthma, uncomplicated INPATIENT VISIT TRACKING (12 MO.) 12/14/2023 07:32 [facility] [place] TYPE: [facility] COMPLAINT: - INDUCTION DIAGNOSES: - 39 weeks [...] negative - Type O blood, Rh negative [email or web address]
[2024-11-18] MEDS ORDERED: CEPHALEXIN500 M1 PO (22:14)
[2024-11-18] MEDS ORDERED: CEPHALEXIN MONOHYDRATE 500 MG HOME.PACK PO ONE (22:15)
[2024-11-18] MEDS ORDERED: IBUPROFEN 800 MG TAB PO ONE (22:15)
[2024-11-18 22:28] LABS: BASOPHILS 0.3 % (0.1-1.2); EOSINOPHILS 4.9 % (0.7-5.8); LYMPHOCYTES 23.9 % (19.3-51.7); MCH 28.5 PG (25.6-32.2); MCHC 33.9 g/dL (32.2-35.5); MCV 84.2 fL (79.4-94.8); MONOCYTES 8.2 % (4.7-12.5); NEUTROPHILS 62.5 % (34.0-71.1); RBC 4.80 M/uL (3.93-5.22)
[2024-11-18 22:43] LABS: ALT (SGPT) 18.0 U/L (14-59); AST (SGOT) 23.0 U/L (15-37); GLOMERULAR FILTRATION RATE,EST 132.0 mL/min (>60); PROTEIN, TOTAL 7.5 g/dL (6.4-8.2); UREA NITROGEN 9.0 mg/dL (7-18)
[2024-11-18 23:20] VITALS: BP 109/71
== END 2024-11-18 23:21 | disposition home or self-care (01) ==
LOC: ED 19:52
PROVIDERS: Internal Medicine
DX: O91.23 Nonpurulent mastitis associated with lactation (principal); Z91.018 Allergy to other foods
CPT/HCPCS: 36415; 80053; 84703; 85025; 99283; A9270

== ENCOUNTER 2025-01-13 14:52 | Emergency (ER) | payer OTHER ==
[~2025-01-13] VITALS: Ht 157.5 cm; Wt 59.7 kg
--- OUTSIDE RECORDS SUMMARY | ~2025-01-13 | XMS | Continuity of Care Document ---
Demographics + + + | Address | [address] | | | [place] [address] | + + + | Preferred Language | Unknown | + + + | Marital Status | | + + + | Evangelical Affiliation | Unknown | + + + | Race | White | + + + | Ethnic Group | Not or | + + + Author + + + | Author | [facility] | + + + | Organization | [facility] | + + + | Address | [address] | | | [place] [address] | + + + | Phone | | + + + Care Team Providers + + + + | Care Local Company Flatbed Truck Driver Name | Role | Phone | + + + + Unavailable | Unavailable | + + + + Unavailable | Unavailable | + + + + Allergies No information. Encounters No information. Functional Status No information. Immunizations No information. Medications + + + + | date | description | facility | + + + + | (no date) | MEDROXYPROGESTERONE | Lizzy - | | | ACETATE | [facility] | + + + + | (no date) | VIT/FE | Lizzy - | | | FUM/CELINA/FA | [facility] | + + + + | (no date) | ALBUTEROL SULFATE | Lizzy - | | | | [facility] | + + + + | 2024-11-18 00:00 | CEPHALEXIN | Lizzy - | | | | [facility] | + + + + | (no date) | | [facility] | | | BUTALB/ACETAMINOPHEN/CAFFEI | [facility] | | | NE | | + + + + Problems + + + + | date | description | facility | + + + + | 2024-11-18 00:00 | Mastitis associated with | [facility] | | | | [facility] | + + + + Procedures No information. Results/Labs +--------+--------+ +---------+--------+---------+ | test | date | facility | value | unit | notes | +--------+--------+ +---------+--------+---------+ + + | Result panel 1 | + + + + + +--------+ + + | WBC # Bld | 2024-11-18 | | 9.94 | (missing) | (missing) | | Auto | 22:20:07 [facility] | | | + + + +--------+ + + + + | Result panel 2 | + + + + + +--------+ + + | Lymphocytes | 2024-11-18 | | 23.9 | (missing) | (missing) | | NFr Bld | 22:20:07 | [facility] | | | | | Auto | [facility] | | | | + + + +--------+ + + + + | Result panel 3 | + + + + + +-------+ + + | Monocytes | 2024-11-18 | | 8.2 | (missing) | (missing) | | NFr Bld Auto | 22:20:07 | [facility] | | | | + + + +-------+ + + + + | Result panel 4 | + + + + + +-------+ + + | Eosinophil | 2024-11-18 | | 4.9 | (missing) | (missing) | | NFr Bld Auto | 22:20:07 | [facility] | | | | + + + +-------+ + + + + | Result panel 5 | + + + + + +-------+ + + | Basophils | 2024-11-18 | | 0.3 | (missing) | (missing) | | NFr Bld Auto | 22:20:07 | [facility] | | | | + + + +-------+ + + + + | Result panel 6 | + + + + + +------+---------+ + | Glucose | 2024-11-18 | | 83 | mg/dL | (missing) | | SerPl-mCnc | 22:20:07 | [facility] | | | | + + + +------+---------+ + + + | Result panel 7 | + + + + + +-----+---------+ + | BUN | 2024-11-18 | | 9 | mg/dL | (missing) | | SerPl-mCnc | 22:20:07 | [facility] | | | | + + + +-----+---------+ + + + | Result panel 8 | + + + + + +--------+---------+ + | Creat | 2024-11-18 | | 0.49 | mg/dL | (missing) | | SerPl-mCnc | 22:20:07 | [facility] | | | | + + + +--------+---------+ + + + | Result panel 9 | + + + + + +-------+ + + | eGFRcr | 2024-11-18 | | 132 | (missing) | (missing) | | SerPlBld | 22:20:07 | [facility] | | | | | CKD-EPI 2020 | [facility] | | | | + + + +-------+ + + + + | Result panel 10 | + + + + + +---------+ + + | BUN/Creat | 2024-11-18 | | 18.36 | (missing) | (missing) | | SerPl | 22:20:07 | [facility] | | | | + + + +---------+ + + + + | Result panel 11 | + + + + + +-------+ + + | Sodium | 2024-11-18 | | 140 | (missing) | (missing) | | SerPl-sCnc | 22:20:07 | [facility] | | | | + + + +-------+ + + + + | Result panel 12 | + + + + + +--------+ + + | RBC # Bld | 2024-11-18 | | 4.80 | (missing) | (missing) | | Auto | 22:20:07 | [facility] | | | | + + + +--------+ + + + + | Result panel 13 | + + + + + +-------+ + + | Potassium | 2024-11-18 | | 3.8 | (missing) | (missing) | | SerPl-sCnc | 22:20:07 | [facility] | | | | + + + +-------+ + + + + | Result panel 14 | + + + + + +-------+ + + | Chloride | 2024-11-18 | | 103 | (missing) | (missing) | | SerPl-sCnc | 22:20:07 | [facility] | | | | + + + +-------+ + + + + | Result panel 15 | + + + + + +------+ + + | CO2 | 2024-11-18 | | 25 | (missing) | (missing) | | SerPl-sCnc | 22:20:07 | [facility] | | | | + + + +------+ + + + + | Result panel 16 | + + + + + +--------+ + + | Anion Gap | 2024-11-18 | | 15.8 | (missing) | (missing) | | SerPl | 22:20:07 | [facility] | | | | | Calculated.4 | [facility] | | | | + + + +--------+ + + + + | Result panel 17 | + + + + + +-------+---------+ + | Calcium | 2024-11-18 | | 8.9 | mg/dL | (missing) | | SerPl-mCnc | 22:20:07 | [facility] | | | | + + + +-------+---------+ + + + | Result panel 18 | + + + + + +-------+ + + | Prot | 2024-11-18 | | 7.5 | (missing) | (missing) | | SerPl-mCnc | 22:20:07 | [facility] | | | | + + + +-------+ + + + + | Result panel 19 | + + + + + +-------+ + + | Albumin | 2024-11-18 | | 3.6 | (missing) | (missing) | | Christopher-[place]entry | 22:20:07 | [facility] | | | | + + + +-------+ + + + + | Result panel 20 | + + + + + +-------+ + + | Globulin | 2024-11-18 | | 3.9 | (missing) | (missing) | | Ser-mCnc | 22:20:07 | [facility] | | | | + + + +-------+ + + + + | Result panel 21 | + + + + + +--------+ + + | | 2024-11-18 | | 0.92 | (missing) | (missing) | | Albumin/Glob | 22:20:07 | [facility] | | | | | SerPl [facility] | | | | + + + +--------+ + + + + | Result panel 22 | + + + + + +-------+---------+ + | Bilirub | 2024-11-18 | | 0.4 | mg/dL | (missing) | | SerPl-mCnc | 22:20:07 | [facility] | | [facility] | | | | + + + +-------+---------+ + + + | Result panel 23 | + + + + + +--------+ + + | Hgb | 2024-11-18 | | 13.7 | (missing) | (missing) | | Bld-mCnc | 22:20:07 | [facility] | | | | + + + +--------+ + + + + | Result panel 24 | + + + + + +------+ + + | AST | 2024-11-18 | | 23 | (missing) | (missing) | | SerPl-cCnc | 22:20:07 | [facility] | | | | + + + +------+ + + + + | Result panel 25 | + + + + + +------+ + + | ALT | 2024-11-18 | | 18 | (missing) | (missing) | | SerPl-cCnc | 22:20:07 | [facility] | | | | + + + +------+ + + + + | Result panel 26 | + + + + + +------+ + + | ALP | 2024-11-18 | | 93 | (missing) | (missing) | | SerPl-cCnc | 22:20:07 | [facility] | | | | + + + +------+ + + + + | Result panel 27 | + + + + + + + + + | HCG SerPl | 2024-11-18 | | NEGATIVE | (missing) | (missing) | | Ql | 22:20:07 | [facility] | | | | + + + + + + + + + | Result panel 28 | + + + + + +--------+ + + | Hct VFr.DF | 2024-11-18 | | 40.4 | (missing) | (missing) | | Bld Auto | 22:20:07 | [facility] | | | | + + + +--------+ + + + + | Result panel 29 | + + + + + +--------+ + + | RBC Auto | 2024-11-18 | | 84.2 | (missing) | (missing) | | | 22:20:07 | [facility] | | | | + + + +--------+ + + + + | Result panel 30 | + + + + + +--------+ + + | MCH RBC Qn | 2024-11-18 | | 28.5 | (missing) | (missing) | | Auto | 22:20:07 | [facility] | | | | + + + +--------+ + + + + | Result panel 31 | + + + + + +--------+ + + | MCHC RBC | 2024-11-18 | | 33.9 | (missing) | (missing) | | Auto-EntMCnc | 22::07 | [facility] | | | | + + + +--------+ + + + + | Result panel 32 | + + + + + +-------+ + + | Platelet # | 2024-11-18 | | 189 | (missing) | (missing) | | Bld Auto | 22:20:07 | [facility] | | | | + + + +-------+ + + + + | Result panel 33 | + + + + + +--------+ + + | Neutrophils | 2024-11-18 | | 62.5 | (missing) | (missing) | | NFr Bld | 22:20:07 | [facility] | | | | | Auto | [facility] | | | | + + + +--------+ + + Social History +--------+ + + | date | description | facility | +--------+ + + Vital Signs + + + +---------+ | date | measurement | value | units | + + + +---------+ | 2024-11-18 00:00 | BMI | 24.2 | kg/m2 | + + + +---------+ | 2024-11-18 00:00 | BP_diastolic | 71 | mmHg | + + + +---------+ | 2024-11-18 00:00 | BP_systolic | 109 | mmHg | + + + +---------+ | 2024-11-18 00:00 | heart_rate | 98 | /min | + + + +---------+ | 2024-11-18 00:00 | height_metric | 157.48 | cm | + + + +---------+ | 2024-11-18 00:00 | height_standard | 62 | in | + + + +---------+ | 2024-11-18 00:00 | o2_saturation | 100 | % | + + + +---------+ | 2024-11-18 00:00 | respiration_rate | 17 | /min | + + + +---------+ | 2024-11-18 00:00 | | 98.7 | F | | | temperature_standar | | | | | d | | | + + + +---------+ | 2024-11-18 00:00 | weight_metric | 59.999 | kg | + + + +---------+ | 2024-11-18 00:00 | weight_standard | 132.275 | lb | + + + +---------+"
[~2025-01-13 14:52] MED LIST changes: +CEPHALEXIN500 M1 PO
--- OUTSIDE RECORDS SUMMARY | 2025-01-13 14:59 | XMS ---
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 \R\- PATIENT OBGYN- DR WYNN. Sarabia VISIT COUNT (12 MO.) 4 [facility]. TOTAL 4 NOTE: Visits indicate total known visits. ED/UCC VISIT TRACKING (12 MO.) 01/13/2025 14:53 [facility] [place] TYPE: Emergency COMPLAINT: - KNEE PAIN/INJURY 11/18/2024 19:53 [facility] [place] TYPE: Emergency COMPLAINT: - POSS LUMP DIAGNOSES: - Allergy to other foods - Mastodynia - Nonpurulent mastitis associated with 08/11/2024 20:08 [facility] [place] TYPE: Emergency COMPLAINT: - MIGRAINE [...] injury of head, initial encounter 02/29/2024 21:[address] [facility] [place] TYPE: Emergency COMPLAINT: - TOOTH PAIN DIAGNOSES: - Allergy to other foods - Periapical abscess without sinus - Unspecified asthma, uncomplicated INPATIENT VISIT TRACKING (12 MO.) No inpatient visits to display in this time frame [email or web address]
[2025-01-13 18:30] VITALS: BP 117/77
== END 2025-01-13 18:27 | disposition home or self-care (01) ==
LOC: ED 14:52
DX: S80.01XA Contusion of right knee, initial encounter (principal); J45.909 Unspecified asthma, uncomplicated; G43.909 Migraine, unspecified, not intractable, without status migrainosus; W01.0XXA Fall on same level from slipping, tripping and stumbling without subsequent striking against object, initial encounter; Z91.018 Allergy to other foods
CPT/HCPCS: 73560; 99283